=== PATIENT | female | born 1985 | race Caucasian/White ===

== ENCOUNTER 2018-04-24 19:39 | Inpatient (IN) | payer OTHER ==
[~2018-04-24] VITALS: Ht 152.4 cm; Wt 134.0 kg
[2018-04-24] MEDS ORDERED: PRENATABS FA T1 EACH PO (20:25)
== END 2018-04-27 19:29 | disposition home or self-care (01) | DRG 765 ==
LOC: LDR 19:39 → OB/GYN 19:39 → O/R 04-25 13:02 → OB/GYN 04-25 14:00
PROVIDERS: Obstetrics & Gynecology
PROC: 0UL70ZZ Occlusion of Bilateral Fallopian Tubes, Open Approach (ICD-10-PCS; 2018-04-25)
PROC: 4A033R1 Measurement of Arterial Saturation, Peripheral, Percutaneous Approach (ICD-10-PCS; 2018-04-25)
PROC: 4A1HXCZ Monitoring of Products of Conception, Cardiac Rate, External Approach (ICD-10-PCS; 2018-04-25)
PROC: 10D00Z1 Extraction of Products of Conception, Low, Open Approach (ICD-10-PCS; principal; 2018-04-25 11:15)
DX: O76 Abnormality in fetal heart rate and rhythm complicating labor and delivery (principal); O41.03X0 Oligohydramnios, third trimester, not applicable or unspecified; Z3A.37 37 weeks gestation of pregnancy; Z37.0 Single live birth; Z30.2 Encounter for sterilization